=== PATIENT | male | born 1995 | race Caucasian/White ===

== ENCOUNTER 2017-10-24 10:21 | Emergency (ER) | payer OTHER ==
[~2017-10-24] VITALS: Ht 172.7 cm; Wt 60.9 kg
[2017-10-24 10:28] VITALS: BP 144/88; PULSE 88; TEMP 37; O2SAT 98; Ht 172.7 cm; Wt 60.9 kg
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
== END 2017-10-24 10:55 | disposition home or self-care (01) ==
LOC: C.EDB 10:23
DX: R41.0 Disorientation, unspecified (principal)